=== PATIENT | male | born 1995 | race Caucasian/White ===

== ENCOUNTER 2019-08-17 00:28 | Emergency (ER) | payer MEDICARE, MEDICAID ==
--- NOTE | 2019-08-17 02:28 | EDM.PDOC ---
ED HPI GENERAL MEDICAL PROBLEM - General Chief Complaint: Abdominal Pain Stated Complaint: ABDOMINAL PAIN Time Seen by Provider: 08/17/19 00:30 Source of Information: Reports: Patient History Limitations: Reports: No Limitations - History of Present Illness INITIAL COMMENTS - FREE TEXT/NARRATIVE: Patient presented to the ED because of constipation x 3 days. denies any N/V, fever or chills. He also c/o abdominal wall muscle pain and chest wall pain whenever he lifts wait. - Related Data Allergies Allergy/AdvReac Type Severity Reaction Status Date / Time Penicillins Allergy Hives Verified 08/17/19 00:55 Home Meds: Home Meds NK [No Known Home Meds] 02/14/14 [History] Past Medical History - Past Health History Medical/Surgical History: Denies Medical/Surgical History Gastrointestinal History: Reports: Other (See Below) Other Gastrointestinal History: History of abdominal pain and bloating. Psychiatric History: Reports: Other (See Below) Other Psychiatric History: Daily marijuana use. Social & Family History - Recreational Drug Use Recreational Drug Type: Reports: Marijuana/Hashish Recreational Drug Use Frequency: Daily ED ROS GENERAL - Review of Systems Review Of Systems: See Below Constitutional: Reports: No Symptoms HEENT: Reports: No Symptoms Respiratory: Reports: Pleuritic Chest Pain Cardiovascular: Reports: No Symptoms Endocrine: Reports: No Symptoms GI/Abdominal: Reports: No Symptoms : Reports: No Symptoms Musculoskeletal: Reports: No Symptoms Skin: Reports: No Symptoms Neurological: Reports: No Symptoms Psychiatric: Reports: No Symptoms ED EXAM, GI/ABD - Physical Exam Exam: See Below Exam Limited By: No Limitations General Appearance: Alert, WD/WN, No Apparent Distress Ears: Normal External Exam, Normal Canal, Hearing Grossly Normal Nose: Normal Inspection, Normal Mucosa, No Blood Throat/Mouth: Normal Inspection, Normal Lips, Normal Teeth, Normal Gums Head: Atraumatic, Normocephalic Neck: Normal Inspection, Supple, Non-Tender, Full Range of Motion Respiratory/Chest: No Respiratory Distress, Lungs Clear, Normal Breath Sounds, Other (chest wall tenderness) Cardiovascular: Normal Peripheral Pulses, Regular Rate, Rhythm, No Edema, No Gallop, No JVD, No Rub GI/Abdominal Exam: Normal Bowel Sounds, Soft, Non-Tender, No Organomegaly, No Distention, No Abnormal Bruit Extremities: Normal Inspection, Normal Range of Motion Neurological: Alert, Oriented, CN II-XII Intact, Normal Cognition, Normal Gait Psychiatric: Normal Affect, Normal Mood Skin Exam: Warm, Dry, Intact Course - Vital Signs Text/Narrative:: abd xray-see result,moderate amount of stool Last Recorded V/S: Last Vital Signs Temp 36.8 C 08/17/19 02:30 Pulse 81 08/17/19 02:30 Resp 18 08/17/19 02:30 BP 124/84 08/17/19 02:30 Pulse Ox 100 08/17/19 02:30 - Orders/Labs/Meds Orders: Active Orders 24 hr Category Date Time Status Abdomen 2V AP Flat Upright [CR] Stat Exams 08/17/19 01:25 Taken Departure - Departure Time of Disposition: 02:25 Disposition: Home, Self-Care 01 Condition: Good Clinical Impression: Constipation, Muscle strain - Discharge Information Instructions: Muscle Strain, [id number], Constipation, Adult Referrals: Isaias Morrissey MD [Primary Care Provider] - Forms: ED Department Discharge Additional Instructions: please read discharge instructions on constipation increase oral fluids miralax(over the counter)-dissolve 1 scoop in 1 glass of water and take the entire solution. Do this once daily until you have a good bowel movement take ibuprofen 800 with tylenol 1000 mg every 8 hours as needed for abdominal wall muscle strain follow up as needed - My Orders Last 24 Hours: My Active Orders 08/17/19 01:25 Abdomen 2V AP Flat Upright [CR] Stat - Assessment/Plan Last 24 Hours: My Active Orders 08/17/19 01:25 Abdomen 2V AP Flat Upright [CR] Stat
[2019-08-17 06:02] VITALS: BP 124/84; PULSE 81
== END 2019-08-17 02:45 | disposition home or self-care (01) ==
LOC: FB.ED 00:28
DX: S29.011A Strain of muscle and tendon of front wall of thorax, initial encounter (principal); K59.00 Constipation, unspecified; Z88.0 Allergy status to penicillin; X50.0XXA Overexertion from strenuous movement or load, initial encounter
CPT/HCPCS: 74019; 99283; 99285-25

== ENCOUNTER 2019-10-08 01:06 | Emergency (ER) | payer MEDICARE, MEDICAID ==
--- NOTE | 2019-10-08 01:17 | EDM.PDOC ---
ED HPI GENERAL MEDICAL PROBLEM - General Chief Complaint: Abdominal Pain Stated Complaint: ABDOMINAL PAIN;NAUSEA Time Seen by Provider: 10/08/19 01:15 Source of Information: Reports: Patient History Limitations: Reports: No Limitations - History of Present Illness INITIAL COMMENTS - FREE TEXT/NARRATIVE: 24-year-old male with history of abdominal pain that has been present to some degree for about the past 5 weeks. He was seen in this emergency department in August 2019 for the beginning of his abdominal pain and apparently he has been having problems with he feels is constipation. That is, he intermittently is having bowel movements and the feeling that he has to have a bowel movement. He was treated with MiraLAX after his August ER visit but he reports that this did not provide him with any relief (he was only taking 1 dose a day) and apparently he has followed up with Dr. Yan had an ultrasound which did not show any abnormality since this August ER visit. He reports that over the past 4 days he has had little to no bowel movement. It having sitting generalized, diffuse abdominal pain and seems to be more in his upper abdomen and he has become quite uncomfortable and found it even hard to sit down or bend tonight secondary to the pain. He has had some nausea but no vomiting. He does report that he has been eating and drinking normally and it doesn't really seem to affect his pain. He has had no fevers or chills. He rates the pain as a 9-10/10. That it is sharp up top but is pressure and discomfort all through his entire abdomen. He does feel that it radiates up into his chest. He has had no blood in his stool. He denies any vomiting. There aren't no problems urinating. He has had no fevers or chills. There are no other associated signs or symptoms. There are no other modifying factors. Onset: Other (5 weeks with worsening over the past 4 days) Duration: Getting Worse Location: Reports: Abdomen, Other (Radiates up into the chest.) Quality: Reports: Pressure, Sharp Severity: Moderate (to severe area) Improves with: Reports: None Worsens with: Reports: Other (Palpation. Bending over.), Movement Context: Reports: Other Associated Symptoms: Reports: No Other Symptoms Treatments STUDENT OUTREACH COORDINATOR: Reports: Other (see below) (He has taken [id number] stool softeners and laxatives out relief of his symptoms.) abdominal Pain Score (Numeric/FACES): 10 - Related Data Allergies Allergy/AdvReac Type Severity Reaction Status Date / Time Penicillins Allergy Hives Verified 08/17/19 00:55 Home Meds: Home Meds NK [No Known Home Meds] 02/14/14 [History] Past Medical History - Past Health History Medical/Surgical History: Denies Medical/Surgical History (No chronic medical problems. 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 ED ROS GENERAL - Review of Systems Review Of Systems: See Below Constitutional: Reports: No Symptoms HEENT: Reports: No Symptoms Respiratory: Reports: No Symptoms Cardiovascular: Reports: No Symptoms GI/Abdominal: Reports: Abdominal Pain, Constipation (Feels constipated.), Nausea. Denies: Diarrhea, Vomiting : Reports: No Symptoms Musculoskeletal: Reports: No Symptoms Skin: Reports: No Symptoms Neurological: Reports: No Symptoms Psychiatric: Reports: No Symptoms Hematologic/Lymphatic: Reports: No Symptoms Immunologic: Reports: No Symptoms ED EXAM, GI/ABD - Physical Exam Exam: See Below Exam Limited By: No Limitations General Appearance: Alert, WD/WN, Moderate Distress (Appears in acute pain and is standing secondary to the pain.) Eyes: Bilateral: Normal Appearance, EOMI Ears: Normal External Exam Nose: Normal Inspection Throat/Mouth: Normal Voice, No Airway Compromise, Other (Dry mucous membranes) Head: Atraumatic, Other Neck: Normal Inspection, Supple, Non-Tender, Full Range of Motion Respiratory/Chest: No Respiratory Distress, Lungs Clear, Normal Breath Sounds, No Accessory Muscle Use, Chest Non-Tender Cardiovascular: Normal Peripheral Pulses, No Edema GI/Abdominal Exam: Normal Bowel Sounds, Soft, No Organomegaly, No Mass, Distended, Tender (Tender diffusely.). No: Rigid, Rebound Back Exam: Normal Inspection, Full Range of Motion. No: CVA Tenderness (R), CVA Tenderness (L) Extremities: Normal Inspection, Normal Range of Motion, Non-Tender, No Pedal Edema, Normal Capillary Refill Neurological: Alert, Oriented, CN II-XII Intact, Normal Cognition, No Motor/ Sensory Deficits Skin Exam: Warm, Dry, Intact, Normal Color, No Rash Course - Vital Signs Last Recorded V/S: Last Vital Signs Temp 37.1 C 10/08/19 01:06 Pulse 80 10/08/19 03:57 Resp 14 10/08/19 03:57 BP 130/87 10/08/19 03:57 Pulse Ox 100 10/08/19 03:57 - Orders/Labs/Meds Orders: Active Orders 24 hr Category Date Time Status Abdomen Pelvis w Cont [CT] Stat Exams 10/08/19 01:30 Taken Peripheral IV Insertion Adult [OM.PC] Routine Oth 10/08/19 01:30 Ordered Labs: Laboratory Tests 10/08/19 10/08/19 10/08/19 Range/Units 01:53 01:53 01:53 WBC 7.3 (4.5-12.0) X10-3/uL RBC 4.48 (4.30-5.75) x10(6)uL Hgb 13.8 (13.5-17.8) g/dL Hct 39.6 (30.0-51.3) % MCV 88.3 (80-96) fL MCH 30.9 (27.7-33.6) pg MCHC 35.0 (32.2-35.4) g/dL RDW 11.6 (11.5-15.5) % Plt Count 201 (125-369) X10(3)uL MPV 8.3 (7.4-10.4) fL Neut % (Auto) 60.5 (46-82) % Lymph % (Auto) 29.8 (13-37) % Cottle % (Auto) 7.1 (4-12) % Eos % (Auto) 2 (1.0-5.0) % Baso % (Auto) 1 (0-2) % Neut # (Auto) 4.4 (1.6-8.3) # Lymph # (Auto) 2.2 (0.6-5.0) # Cottle # (Auto) 0.5 (0.0-1.3) # Eos # (Auto) 0.1 (0.0-0.8) # Baso # (Auto) 0.1 (0.0-0.2) # Sodium 142 (135-145) mmol/L Potassium 3.6 (3.5-5.3) mmol/L Chloride 105 (100-110) mmol/L Carbon Dioxide 26 (21-32) mmol/L BUN 16 (7-18) mg/dL Creatinine 1.1 (0.70-1.30) mg/dL Est Cr Clr Drug Dosing TNP Estimated GFR (MDRD) > 60 (>60) BUN/Creatinine Ratio 14.5 (9-20) Glucose 93 (80-116) mg/dL Calcium 8.9 (8.6-10.2) mg/dL Total Bilirubin 0.6 (0.1-1.3) mg/dL AST 14 (5-25) IU/L ALT 16 (12-36) U/L Alkaline Phosphatase 76 (56-112) IU/L C-Reactive Protein < 0.2 L (0.5-0.9) mg/dL Total Protein 7.5 (6.0-8.0) g/dL Albumin 4.3 (3.5-5.2) g/dL Globulin 3.2 g/dL Albumin/Globulin Ratio 1.3 Lipase 154 (73-393) U/L Urine Color (YELLOW) Urine Appearance (CLEAR) Urine pH (5.0-6.5) Ur Specific Mcdonough (1.010-1.025) Urine Protein (NEGATIVE) mg/dL Urine Glucose (UA) (NORMAL) mg/dL Urine Ketones (NEGATIVE) mg/dL Urine Occult Blood (NEGATIVE) Urine Nitrite (NEGATIVE) Urine Bilirubin (NEGATIVE) Urine Urobilinogen (NEGATIVE) mg/dL Ur Leukocyte Esterase (NEGATIVE) Urine RBC (0-5) Urine WBC (0-5) Ur Squamous Epith Cells (NS,R,O) Urine Bacteria (NS) 10/08/19 Range/Units 03:14 WBC (4.5-12.0) X10-3/uL RBC (4.30-5.75) x10(6)uL Hgb (13.5-17.8) g/dL Hct (30.0-51.3) % MCV (80-96) fL MCH (27.7-33.6) pg MCHC (32.2-35.4) g/dL RDW (11.5-15.5) % Plt Count (125-369) X10(3)uL MPV (7.4-10.4) fL Neut % (Auto) (46-82) % Lymph % (Auto) (13-37) % Cottle % (Auto) (4-12) % Eos % (Auto) (1.0-5.0) % Baso % (Auto) (0-2) % Neut # (Auto) (1.6-8.3) # Lymph # (Auto) (0.6-5.0) # Cottle # (Auto) (0.0-1.3) # Eos # (Auto) (0.0-0.8) # Baso # (Auto) (0.0-0.2) # Sodium (135-145) mmol/L Potassium (3.5-5.3) mmol/L Chloride (100-110) mmol/L Carbon Dioxide (21-32) mmol/L BUN (7-18) mg/dL Creatinine (0.70-1.30) mg/dL Est Cr Clr Drug Dosing Estimated GFR (MDRD) (>60) BUN/Creatinine Ratio (9-20) Glucose (80-116) mg/dL Calcium (8.6-10.2) mg/dL Total Bilirubin (0.1-1.3) mg/dL AST (5-25) IU/L ALT (12-36) U/L Alkaline Phosphatase (56-112) IU/L C-Reactive Protein (0.5-0.9) mg/dL Total Protein (6.0-8.0) g/dL Albumin (3.5-5.2) g/dL Globulin g/dL Albumin/Globulin Ratio Lipase (73-393) U/L Urine Color Yellow (YELLOW) Urine Appearance Clear (CLEAR) Urine pH 6.0 (5.0-6.5) Ur Specific Mcdonough 1.015 (1.010-1.025) Urine Protein Negative (NEGATIVE) mg/dL Urine Glucose (UA) Normal (NORMAL) mg/dL Urine Ketones Negative (NEGATIVE) mg/dL Urine Occult Blood Negative (NEGATIVE) Urine Nitrite Negative (NEGATIVE) Urine Bilirubin Negative (NEGATIVE) Urine Urobilinogen Normal (NEGATIVE) mg/dL Ur Leukocyte Esterase Negative (NEGATIVE) Urine RBC 0-5 (0-5) Urine WBC 0-5 (0-5) Ur Squamous Epith Cells Rare (NS,R,O) Urine Bacteria Occasional H (NS) Meds: Medications Discontinued Medications Generic Name Dose Route Start Last Admin Trade Name Freq PRN Reason Stop Dose Admin Fentanyl 50 mcg 10/08/19 01:31 10/08/19 01:50 Sublimaze IVPUSH 10/08/19 01:32 50 mcg ONETIME ONE Administration Sodium Chloride 1,000 mls @ 999 mls/hr 10/08/19 01:31 10/08/19 01:52 Normal Saline IV 10/08/19 02:31 999 mls/hr .BOLUS ONE Administration Sodium Chloride 1,000 mls @ 150 mls/hr 10/08/19 01:45 10/08/19 03:09 Normal Saline IV 150 mls/hr ASDIRECTED JAVAN Administration Iopamidol 100 ml 10/08/19 01:41 10/08/19 02:13 Isovue-370 (76%) IV 10/08/19 01:42 100 ml . DIRECTED ONE Administration Ondansetron HCl 4 mg 10/08/19 01:31 10/08/19 01:49 Zofran IVPUSH 10/08/19 01:32 4 mg ONETIME ONE Administration Sodium Chloride 10 ml 10/08/19 01:30 10/08/19 01:52 Saline Flush FLUSH 10 ml ASDIRECTED PRN Administration Keep Vein Open - Radiology Interpretation Free Text/Narrative:: CT scan of abdomen and pelvis showed a normal appendix and a 1.3 cm prostatic cyst. This was per the radiologist. It was an essentially normal CT scan without any abnormality pointing toward the cause of the patient's pain. - Re-Assessments/Exams Free Text/Narrative Re-Assessment/Exam: 10/08/19 03:30: Patient's blood tests were reassuringly normal. CT scan of his abdomen and pelvis showed no acute abnormality. I suspect that the increase in the patient's pain may have been due to the laxative that he took. I am unsure why he is having the abdominal symptoms that he has had for the past 5 weeks. The urinalysis is pending at this point. It is clear and yellow and I don't suspect that there should be any problem. I think that he is stable for discharge and I don't see a need for any acute intervention at this point. He should increase his fluid intake. He should avoid any exudative's in the future other than MiraLAX. I have told the patient that he can take 3 or even 4 doses of the MiraLAX a day as a "mini clean out". This should alleviate any constipation that he may have. He will need to follow-up with his primary provider as he may need further GI workup. 10/08/19 03:45: Urinalysis was normal. Plan will be to discharge the patient as above. Departure - Departure Time of Disposition: 03:55 Disposition: Home, Self-Care 01 Condition: Good Clinical Impression: Abdominal pain of unknown etiology - Discharge Information Instructions: Constipation, Adult, [id number], Abdominal Pain, Adult, Easy-to -Read Referrals: Isaias Morrissey MD [Primary Care Provider] - Forms: ED Department Discharge Additional Instructions: Your blood tests were reassuringly normal. Your urine test was normal. Of your abdomen and pelvis showed no acute abnormality. Specifically, it did not show anything that would point toward the cause of your pain. You did have a small cyst on your prostate of unknown significance. You will need to follow-up with your primary doctor in regard to this abdominal pain as you may need further workup and possibly referral to a gastroenterology specialist. Increase your fluid intake. Avoid any laxatives in the future except for MiraLAX. You may take 3 or even 4 doses of the MiraLAX in a day have good results and bowel movement. If you are having any problems with constipation, this will relieve that. Back to the emergency department for marked increase in pain, unrelenting vomiting, high fever or any other concerning sign or symptom. Sepsis Event Note - Focused Exam Vital Signs: Vital Signs Temp Pulse Resp BP Pulse Ox 10/08/19 03:57 80 14 130/87 100 10/08/19 01:06 37.1 C 87 14 116/78 100 Date Exam was Performed: 10/08/19 Time Exam was Performed: 09:26 - My Orders Last 24 Hours: My Active Orders 10/08/19 01:30 Abdomen Pelvis w Cont [CT] Stat Peripheral IV Insertion Adult [OM.PC] Routine - Assessment/Plan Last 24 Hours: My Active Orders 10/08/19 01:30 Abdomen Pelvis w Cont [CT] Stat Peripheral IV Insertion Adult [OM.PC] Routine
[2019-10-08] MEDS ORDERED: Sodium Chloride 0.9% 10 ML Syringe FLUSH PRN (01:30)
[2019-10-08] MEDS ORDERED: Ondansetron 4 MG/2 ML SDV IVPUSH ONE (01:31)
[2019-10-08] MEDS ORDERED: Sodium Chloride 0.9% 1,000 ML IV ONE (01:31)
[2019-10-08] MEDS ORDERED: fentaNYL 100 MCG/2 ML SDV IVPUSH ONE (01:31)
[2019-10-08] MEDS ORDERED: Iopamidol 755 Mg/ML 100 ML Bottle IV ONE (01:41)
[2019-10-08] MEDS ORDERED: Sodium Chloride 0.9% 1,000 ML IV SCH (01:45)
[2019-10-08 05:33] VITALS: BP 130/87; PULSE 80
== END 2019-10-08 03:57 | disposition home or self-care (01) ==
LOC: FB.ED 01:06
DX: R10.9 Unspecified abdominal pain (principal); Z88.0 Allergy status to penicillin
CPT/HCPCS: 36415; 74177; 80053; 81001; 83690; 85025; 86140; 96361; 96374; 96375; 99284; J2405; J3010; J7030; Q9967; 99283

== ENCOUNTER 2023-02-05 19:36 | Emergency (ER) | payer MEDICARE, MEDICAID ==
[2023-02-05] MEDS ORDERED: Lidocaine 2% 20 ML MDV INFILT ONE (19:37)
[2023-02-05] MEDS ORDERED: Diphtheria,Pertussis(Acell),Tetanus Vaccine 0.5 ML Syringe IM ONE (20:46)
[2023-02-05 21:28] VITALS: BP 119/72; PULSE 89
== END 2023-02-05 21:35 | disposition home or self-care (01) ==
LOC: FB.ED 19:36
DX: S51.812A Laceration without foreign body of left forearm, initial encounter (principal); Z88.0 Allergy status to penicillin; Z23 Encounter for immunization; W26.8XXA Contact with other sharp object(s), not elsewhere classified, initial encounter
CPT/HCPCS: 12002; 90471; 90715; 99282